=== PATIENT | male | born 1935 | race Caucasian/White ===

== ENCOUNTER 2016-11-19 13:18 | Emergency (ER) | payer MEDICARE, OTHER ==
[~2016-11-19] VITALS: Ht 182.9 cm; Wt 80.0 kg
[~2016-11-19 13:18] MED LIST: LACTCAP8 PO; PROS5TAB PO; TAMS5CAP PO
[2016-11-19 14:37] VITALS: BP 128/76; PULSE 71; RESP 18; TEMP 97.2; O2SAT 94
[2016-11-19 15:52] LABS: AMPHETAMINE, URINE NEG (NEG); BARBITURATES, URINE NEG (NEG); COCAINE, URINE NEG (NEG)
[2016-11-19 16:01] LABS: BASOPHIL % 0.4 % (0.0-2.0); EOSINOPHIL # 0.1 TH/MM3 (0-0.4); EOSINOPHIL % 1.4 % (0.0-4.0); HEMATOCRIT 50.6 % (39.0-51.0); HEMO FLAGS DIFF FINAL; LYMPH % 18.6 % (9.0-44.0); LYMPHOCYTE # 1.6 TH/MM3 (1.0-4.8); MEAN CELL VOLUME 92.8 FL (80.0-100.0); MEAN CORPUSCULAR HEMOGLOBIN 30.4 PG (27.0-34.0); MEAN CORPUSCULAR HGB CONC 32.7 % (32.0-36.0); MONO % 9.8 % (0.0-8.0); NEUT % 69.8 % (16.0-70.0); PLATELET COUNT 194 TH/MM3 (150-450); RED BLOOD COUNT 5.45 MIL/MM3 (4.50-5.90); RED CELL DISTRIBUTION WIDTH 13.7 % (11.6-17.2); WHITE BLOOD COUNT 8.6 TH/MM3 (4.0-11.0)
[2016-11-19 16:08] LABS: ALT (GPT) 26 U/L (12-78); ANION GAP 9 MEQ/L (5-15); AST (GOT) 18 U/L (15-37); BLOOD UREA NITROGEN 14 MG/DL (7-18); CHLORIDE 107 MEQ/L (98-107); GLOMERULAR FILTRATION RATE 76 ML/MIN (>89); POTASSIUM 3.8 MEQ/L (3.5-5.1); SODIUM (NA) 139 MEQ/L (136-145)
[2016-11-19 16:10] LABS: ALKALINE PHOSPHATASE 91 U/L (45-117); TOTAL BILIRUBIN ADULT 1.3 MG/DL (0.2-1.0)
--- NOTE | 2016-11-19 16:14 | PD ---
HPI Chief Complaint: Psychiatric Symptoms Time Seen by Provider: 16:10 Travel History International Travel<30 days: No Contact w/Intl Traveler<30days: No Traveled to known affect area: No History of Present Illness HPI Patient is an 81-year-old male brought in to emergency under Awan act due to making suicidal statements. Patient states he has felt depressed but is not suicidal, he reports losing his 7 months ago. He states that he has too much to do to commit suicide. He does endorse daily alcohol, he states he drinks 2 drinks a day. He denies any illicit drug use. He denies any visual auditory hallucinations. He denies any previous suicide attempt. PFSH Past Medical History Depression: Yes Genitourinary: Yes (BPH) Psychiatric: Yes (ANXIETY FOLLOWING OF DAUGHTER 2010) Past Surgical History Abdominal Surgery: Yes (CHOLECY; APPY HERNIA REPAIR X 2 ) AICD: No Cardiac Surgery: No Ear Surgery: No Endocrine Surgery: No Eye Surgery: No Genitourinary Surgery: Yes (PROSTATE REDUCED MICROWAVE ) Gynecologic Surgery: No Joint Replacement: No Oral Surgery: Yes (DENTAL IMPLANT ) Pacemaker: No Thoracic Surgery: No Social History Tobacco Use: Yes (CIGAR, DOESN'T INHALE) Substance Use: No Allergies-Medications (Allergen,Severity, Reaction): Coded Allergies: No Known Allergies (Unverified , 05/08/16) Reported Meds & Prescriptions Reported Meds & Active Scripts Active Flomax (Tamsulosin HCl) 0.4 Mg Cap 0.4 Mg PO HS Flomax (Tamsulosin HCl) 0.4 Mg Cap 0.4 Mg PO HS Reported Proscar (Finasteride) 5 Mg Tab 5 Mg PO HS Do not crush. Probiotic (Lactobacillus Acidophilus) 1 Cap Cap 1 Cap PO DAILY Review of Systems Except as stated in HPI: all other systems reviewed are Neg Psychiatric: Positive: Depression, No: Suicidal Ideations, Mood Disorder, Substance Abuse, Homicidal Ideation Physical Exam Narrative GENERAL: Well-developed, well-nourished, slightly disheveled elderly male. Resting comfortably distress. SKIN: Focused skin assessment warm/dry. HEAD: Atraumatic. Normocephalic. EYES: Pupils equal and round. No scleral icterus. No injection or drainage. ENT: No nasal bleeding or discharge. Mucous membranes pink and moist. NECK: Trachea midline. No JVD. CARDIOVASCULAR: Regular rate and rhythm. No murmur appreciated. RESPIRATORY: No accessory muscle use. Clear to auscultation. Breath sounds equal bilaterally. GASTROINTESTINAL: Abdomen soft, non-tender, nondistended. Hepatic and splenic margins not palpable. MUSCULOSKELETAL: No obvious deformities. No clubbing. No cyanosis. No edema. NEUROLOGICAL: Awake and alert. No obvious cranial nerve deficits. Motor grossly within normal limits. Normal speech. PSYCHIATRIC: Appropriate mood and affect; insight and judgment normal. Data Data Last Documented VS Vital Signs Date Time Temp Pulse Resp B/P Pulse Ox O2 Delivery O2 Flow Rate FiO2 11/19/16 14:37 97.2 71 18 128/76 94 Orders Complete Blood Count With Diff (11/19/16 15:04) Comprehensive Metabolic Panel (11/19/16 15:04) Urinalysis - C+S If Indicated (11/19/16 15:04) Psych Screen (11/19/16 15:04) Drug Screen, Random Urine (11/19/16 15:04) Labs Laboratory Tests Test 11/19/16 11/19/16 15:24 15:33 Urine Color YELLOW Urine Turbidity CLEAR Urine pH 5.5 Urine Specific [place] 1.018 Urine Protein TRACE mg/dL Urine Glucose (UA) NEG mg/dL Urine Ketones NEG mg/dL Urine Occult Blood NEG Urine Nitrite NEG Urine Bilirubin NEG Urine Urobilinogen LESS THAN 2.0 MG/DL Urine Leukocyte Esterase NEG Urine RBC LESS THAN 1 /hpf Urine WBC 1 /hpf Urine Squamous Epithelial <1 /hpf Cells Urine Mucus FEW /lpf Microscopic Urinalysis Comment CULT NOT INDICATED Urine Opiates Screen NEG Urine Barbiturates Screen NEG Urine Amphetamines Screen NEG Urine Benzodiazepines Screen NEG Urine Cocaine Screen NEG Urine Cannabinoids Screen NEG White Blood Count 8.6 TH/MM3 Red Blood Count 5.45 MIL/MM3 Hemoglobin 16.6 GM/DL Hematocrit 50.6 % Mean Corpuscular Volume 92.8 FL Mean Corpuscular Hemoglobin 30.4 PG Mean Corpuscular Hemoglobin 32.7 % Concent Red Cell Distribution Width 13.7 % Platelet Count 194 TH/MM3 Mean Platelet Volume 7.8 FL Neutrophils (%) (Auto) 69.8 % Lymphocytes (%) (Auto) 18.6 % Monocytes (%) (Auto) 9.8 % Eosinophils (%) (Auto) 1.4 % Basophils (%) (Auto) 0.4 % Neutrophils # (Auto) 6.0 TH/MM3 Lymphocytes # (Auto) 1.6 TH/MM3 Monocytes # (Auto) 0.8 TH/MM3 Eosinophils # (Auto) 0.1 TH/MM3 Basophils # (Auto) 0.0 TH/MM3 CBC Comment DIFF FINAL Differential Comment Sodium Level 139 MEQ/L Potassium Level 3.8 MEQ/L Chloride Level 107 MEQ/L Carbon Dioxide Level 23.0 MEQ/L Anion Gap 9 MEQ/L Blood Urea Nitrogen 14 MG/DL Creatinine 0.95 MG/DL Estimat Glomerular Filtration 76 ML/MIN Rate Random Glucose 100 MG/DL Calcium Level 8.8 MG/DL Total Bilirubin 1.3 MG/DL Aspartate Amino Transf 18 U/L (AST/SGOT) Alanine Aminotransferase 26 U/L (ALT/SGPT) Alkaline Phosphatase 91 U/L Total Protein 7.6 GM/DL Albumin 3.9 GM/DL MDM Medical Decision Making Medical Screen Exam Complete: Yes Emergency Medical Condition: Yes Interpretation(s) Laboratory Tests Test 11/19/16 11/19/16 15:24 15:33 Urine Color YELLOW Urine Turbidity CLEAR Urine pH 5.5 Urine Specific [place] 1.018 Urine Protein TRACE mg/dL Urine Glucose (UA) NEG mg/dL Urine Ketones NEG mg/dL Urine Occult Blood NEG Urine Nitrite NEG Urine Bilirubin NEG Urine Urobilinogen LESS THAN 2.0 MG/DL Urine Leukocyte Esterase NEG Urine RBC LESS THAN 1 /hpf Urine WBC 1 /hpf Urine Squamous Epithelial <1 /hpf Cells Urine Mucus FEW /lpf Microscopic Urinalysis Comment CULT NOT INDICATED Urine Opiates Screen NEG Urine Barbiturates Screen NEG Urine Amphetamines Screen NEG Urine Benzodiazepines Screen NEG Urine Cocaine Screen NEG Urine Cannabinoids Screen NEG White Blood Count 8.6 TH/MM3 Red Blood Count 5.45 MIL/MM3 Hemoglobin 16.6 GM/DL Hematocrit 50.6 % Mean Corpuscular Volume 92.8 FL Mean Corpuscular Hemoglobin 30.4 PG Mean Corpuscular Hemoglobin 32.7 % Concent Red Cell Distribution Width 13.7 % Platelet Count 194 TH/MM3 Mean Platelet Volume 7.8 FL Neutrophils (%) (Auto) 69.8 % Lymphocytes (%) (Auto) 18.6 % Monocytes (%) (Auto) 9.8 % Eosinophils (%) (Auto) 1.4 % Basophils (%) (Auto) 0.4 % Neutrophils # (Auto) 6.0 TH/MM3 Lymphocytes # (Auto) 1.6 TH/MM3 Monocytes # (Auto) 0.8 TH/MM3 Eosinophils # (Auto) 0.1 TH/MM3 Basophils # (Auto) 0.0 TH/MM3 CBC Comment DIFF FINAL Differential Comment Sodium Level 139 MEQ/L Potassium Level 3.8 MEQ/L Chloride Level 107 MEQ/L Carbon Dioxide Level 23.0 MEQ/L Anion Gap 9 MEQ/L Blood Urea Nitrogen 14 MG/DL Creatinine 0.95 MG/DL Estimat Glomerular Filtration 76 ML/MIN Rate Random Glucose 100 MG/DL Calcium Level 8.8 MG/DL Total Bilirubin 1.3 MG/DL Aspartate Amino Transf 18 U/L (AST/SGOT) Alanine Aminotransferase 26 U/L (ALT/SGPT) Alkaline Phosphatase 91 U/L Total Protein 7.6 GM/DL Albumin 3.9 GM/DL Vital Signs Date Time Temp Pulse Resp B/P Pulse Ox O2 Delivery O2 Flow Rate FiO2 11/19/16 14:37 97.2 71 18 128/76 94 Differential Diagnosis Depression versus suicidal ideations versus mood disorder versus intoxication versus other Narrative Course Patient is an 81-year-old male brought into the emergency department for evaluation after making several statements. Patient denies any suicidal ideations. He does report feeling depressed, denying that he would ever hurt himself. Patient's vital signs are stable. Mental health screening discussed with the patient. Psychiatric screen ordered. Labs reviewed, no acute findings identified. Patient is medically cleared for psychiatric evaluation at this time. Diagnosis Primary Impression: Medical clearance for psychiatric admission Condition: Stable Amirah Jean-Baptiste Nov 19, 2016 16:13
[2016-11-19 17:31] LABS: BLOOD, URINE NEG (NEG); COMMENT (UR) CULT NOT INDICATED; CULTURE IF INDICATED CULT NOT INDICATED; GLUCOSE,URINE NEG (NEG); KETONE, URINE NEG (NEG); MUCUS URINE FEW /lpf (OCC); NITRITE,URINE NEG (NEG); PH, URINE 5.5 (5.0-8.5); SQUAMOUS EPITHELIAL CELL URINE <1 /hpf (0-5); URINE COLOR YELLOW (YELLW/STRAW)
[2016-11-19 18:13] VITALS: BP 192/94; PULSE 90; RESP 18; O2SAT 97
--- NOTE | 2016-11-19 19:56 | PD ---
History of Present Illness Chief Complaint: Psychiatric Symptoms Time Seen by Provider: 19:30 Travel History International Travel<30 Days: No Contact w/Intl Traveler<30days: No Known affected area: No Legal Status Legal Status: Awan Act History of Present Illness: History of Present Illness HPI Patient is an 81-year-old male with no previous psychiatric history brought in to emergency under Awan act initiated by [employer] due to making suicidal statements. Patient states he has felt depressed after the of his but is not suicidal. It appears that [facility] to [facility] for counseling and then called and cancelled the appointment. When he cancelled the appointment the nurse he spoke to became concerned and contacted the police. Patient is alert and oriented male who appears younger than stated age.His speech is clear and logical. His thoughts are organized. he does not appear significantly depressed and he is taking care of himself. there is no psychosis and no allie. He tells me " I have no reason to kill myself. I have a lot of things I need to do. I have to go bury my 's ashes in 3 weeks. I also have wonderful kids that I love and would not hurt them". Telephone call to his sonAngelo at [phone]. He has no concerns over his father's safety and that they speak at least 3 to 4 times per week . he states " I bet it was him being stubborn what got him there. We are planning on burying my mother's ashes in 3 weeks and I will be there with him to do that". PFSH Past Medical History Depression: Yes Genitourinary: Yes (BPH) Psychiatric: Yes (ANXIETY FOLLOWING OF DAUGHTER 2010) Past Surgical History Abdominal Surgery: Yes (CHOLECY; APPY HERNIA REPAIR X 2 ) AICD: No Cardiac Surgery: No Ear Surgery: No Endocrine Surgery: No Eye Surgery: No Genitourinary Surgery: Yes (PROSTATE REDUCED MICROWAVE ) Gynecologic Surgery: No Joint Replacement: No Oral Surgery: Yes (DENTAL IMPLANT ) Pacemaker: No Thoracic Surgery: No Psychiatric History Psychiatric History Hx Psychiatric Treatment: deneis any No previous suicde attempts. 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 Attends [employer] Hx Alcohol Use: Yes (2 drinks. ) Hx Tobacco Use: Yes (CIGAR, DOESN'T INHALE) Hx Substance Use: No Hx of Substance Use Treatment: No Family Psychiatric History Negative Allergies-Medications (Allergen,Severity, Reaction): Coded Allergies: No Known Allergies (Unverified , 05/08/16) Reported Meds & Prescriptions Reported Meds & Active Scripts Active Flomax (Tamsulosin HCl) 0.4 Mg Cap 0.4 Mg PO HS Flomax (Tamsulosin HCl) 0.4 Mg Cap 0.4 Mg PO HS Reported Proscar (Finasteride) 5 Mg Tab 5 Mg PO HS Do not crush. Probiotic (Lactobacillus Acidophilus) 1 Cap Cap 1 Cap PO DAILY Review of Systems Constitutional: DENIES: Diaphoretic episodes, Fatigue, Fever, Weight gain, Weight loss, Chills, Dizziness, Change in appetite, Night Sweats Endocrine: DENIES: Heat/cold intolerance, Polydipsia, Polyuria, Polyphagia Eyes: DENIES: Blurred vision, Diplopia, Eye inflammation, Eye pain, Vision loss , Photosensitivity, Double Vision Ears, nose, mouth, throat: DENIES: Tinnitus, Hearing loss, Vertigo, Nasal discharge, Oral lesions, Throat pain, Hoarseness, Ear Pain, Running Nose, Epistaxis, Sinus Pain, Toothache, Odynophagia Respiratory: DENIES: Apneas, Cough, Snoring, Wheezing, Hemoptysis, Sputum production, Shortness of breath Cardiovascular: DENIES: Chest pain, Palpitations, Syncope, Dyspnea on Exertion , PND, Lower Extremity Edema, Orthopnea, Claudication Gastrointestinal: DENIES: Abdominal pain, Black stools, Bloody stools, Constipation, Diarrhea, Nausea, Vomiting, Difficulty Swallowing, Anorexia Genitourinary: DENIES: Sexual dysfunction, Urinary frequency, Urinary incontinence, Urgency, Hematuria, Dysuria, Nocturia, Penile Discharge, Testicular Pain, Testicular Swelling Musculoskeletal: COMPLAINS OF: Joint pain Integumentary: COMPLAINS OF: Abnormal pigmentation Hematologic/lymphatic: COMPLAINS OF: Bruising Immunologic/allergic: DENIES: Eczema, Urticaria Neurologic: COMPLAINS OF: Poor Balance Psychiatric: DENIES: Anxiety, Confusion, Mood changes, Depression, Hallucinations, Agitation, Suicidal Ideation, Homicidal Ideation, Delusions Exam Alert: Yes [place]: Person (ox4) Mood: Calm Affect: Appropriate Speech: Clear, Logical Eye Contact: Normal Memory Intact: Comment (No impairmetn) Hallucinations: Other (Negative) Delusions: No Suicidal: Ideation (negative) Homicidal: Ideation (Negative) Insight/Judgement Fair. Not impaired. MDM Medical Decision Making Medical Record Reviewed: Yes Assessment/Plan 81 year old male under a BA after he [facility] to [facility] a counseling appointment that was scheduled for next week. It appears he had spoken with a nurse and she reported that he had made suicidal statements. The patient denies any suicidal ideation, intent or plan. he is future oriented. Family collateral is obtained and his son has no concerns for his safety. the son is requesting that he be discharged. At this time there is no criteria for BA. Orders Complete Blood Count With Diff (11/19/16 15:04) Comprehensive Metabolic Panel (11/19/16 15:04) Urinalysis - C+S If Indicated (11/19/16 15:04) Psych Screen (11/19/16 15:04) Drug Screen, Random Urine (11/19/16 15:04) Results Vital Signs Date Time Temp Pulse Resp B/P Pulse Ox O2 Delivery O2 Flow Rate FiO2 11/19/16 18:13 90 18 192/94 97 Room Air 11/19/16 14:37 97.2 71 18 128/76 94 Laboratory Tests Test 11/19/16 11/19/16 15:24 15:33 Urine Color YELLOW Urine Turbidity CLEAR Urine pH 5.5 Urine Specific [place] 1.018 Urine Protein TRACE Urine Glucose (UA) NEG Urine Ketones NEG Urine Occult Blood NEG Urine Nitrite NEG Urine Bilirubin NEG Urine Urobilinogen LESS THAN 2.0 Urine Leukocyte Esterase NEG Urine RBC LESS THAN 1 Urine WBC 1 Urine Squamous Epithelial <1 Cells Urine Mucus FEW Microscopic Urinalysis Comment CULT NOT INDICATED Urine Opiates Screen NEG Urine Barbiturates Screen NEG Urine Amphetamines Screen NEG Urine Benzodiazepines Screen NEG Urine Cocaine Screen NEG Urine Cannabinoids Screen NEG White Blood Count 8.6 Red Blood Count 5.45 Hemoglobin 16.6 Hematocrit 50.6 Mean Corpuscular Volume 92.8 Mean Corpuscular Hemoglobin 30.4 Mean Corpuscular Hemoglobin 32.7 Concent Red Cell Distribution Width 13.7 Platelet Count 194 Mean Platelet Volume 7.8 Neutrophils (%) (Auto) 69.8 Lymphocytes (%) (Auto) 18.6 Monocytes (%) (Auto) 9.8 Eosinophils (%) (Auto) 1.4 Basophils (%) (Auto) 0.4 Neutrophils # (Auto) 6.0 Lymphocytes # (Auto) 1.6 Monocytes # (Auto) 0.8 Eosinophils # (Auto) 0.1 Basophils # (Auto) 0.0 CBC Comment DIFF FINAL Differential Comment Sodium Level 139 Potassium Level 3.8 Chloride Level 107 Carbon Dioxide Level 23.0 Anion Gap 9 Blood Urea Nitrogen 14 Creatinine 0.95 Estimat Glomerular Filtration 76 Rate Random Glucose 100 Calcium Level 8.8 Total Bilirubin 1.3 Aspartate Amino Transf 18 (AST/SGOT) Alanine Aminotransferase 26 (ALT/SGPT) Alkaline Phosphatase 91 Total Protein 7.6 Albumin 3.9 Diagnosis Primary Impression: Medical clearance for psychiatric admission Additional Impression: Adjustment disorder Psychiatrically Cleared: Yes Med/ Other Pt Specific Info: No Meds Exist/No RX given Disposition: DISCHARGE HOME Condition: Stable Problem Qualifiers Additional Impression: Adjustment disorder Qualified Code: F43.20 - Adjustment disorder, unspecified type Demetrice Maloney Nov 19, 2016 19:56
== END 2016-11-19 20:57 | disposition home or self-care (01) ==
LOC: NEDAMB 13:18 → NEPJ 20:57
DX: F43.20 Adjustment disorder, unspecified (principal); F33.9 Major depressive disorder, recurrent, unspecified; N40.0 Benign prostatic hyperplasia without lower urinary tract symptoms
CPT/HCPCS: 80053; 80307; 81001; 85025; 99283